=== PATIENT | female | born 1965 | race Caucasian/White ===

== ENCOUNTER → 2018-05-01 14:49 | Outpatient (CLI) | payer OTHER, SELFPAY ==
--- NOTE | 2018-05-01 14:51 | DI.RAD.S_ITS ---
PROCEDURE: XR FINGER RT MIN 2V INDICATIONS: Finger pain on right hand TECHNIQUE: AP hand, 2 views of the fifth finger(s) acquired. COMPARISON: None. FINDINGS: Bones: No fractures or dislocations. No suspicious bony lesions. There is joint space narrowing and small osteophyte at the fifth distal interphalangeal joint. Soft tissues: No suspicious soft tissue calcifications. IMPRESSION: No fracture or dislocation. Mild degenerative changes at the fifth distal interphalangeal joint. Dictated by: Elvia Grady M.D. on 05/01/2018 at 17:08 Approved by: Elvia Grady M.D. on 05/02/2018 at 11:24
== END ==
PROVIDERS: PCP Family Medicine; Visit Provider Internal Medicine
DX: M79.644 Pain in right finger(s) (principal)
CPT/HCPCS: 73140

== ENCOUNTER → 2018-09-17 15:03 | Outpatient (CLI) | payer OTHER, SELFPAY | PROVIDERS: Family Provider Family Medicine; PCP Family Medicine; Visit Provider Physician Assistant | DX: J02.9 Acute pharyngitis, unspecified (principal) | CPT/HCPCS: 87070 ==

== ENCOUNTER → 2018-10-13 14:08 | Outpatient (CLI) | payer OTHER, SELFPAY ==
--- NOTE | 2018-10-13 | DI.MRI.S_ITS ---
PROCEDURE: MR BRAIN (IAC) WWO CON INDICATIONS: Hyperacusis, right ear TECHNIQUE: Noncontrast sagittal T1 spin echo, axial FLAIR, axial gradient echo, axial diffusion and ADC through the brain. Axial thin-slice 3D CISS, coronal TruFISP, axial T1 spin echo with fat saturation through the internal auditory canals. After the administration of contrast, thin slice axial and coronal T1 spin echo with fat saturation through the internal auditory canals, and axial T1 spin echo with fat saturation through the brain. COMPARISON: None. FINDINGS: Image quality: Excellent. Cerebellopontine angles: No cerebellopontine angle masses. Inner ear structures appear normally formed. No suspicious enhancement in the internal auditory canal or along the course of the 7th cranial nerve. CSF spaces: Ventricles are normal in size and shape. No extra-axial fluid collections. Basal cisterns are patent. Brain: No intracranial bleeds or mass effects. Krishnan-white matter interface is intact. No abnormal intracranial enhancement. Diffusion weighted images demonstrate no acute ischemic insults. Brainstem appears normal. Normal intravascular flow voids are present. Skull and face: Calvarial marrow signal is normal. Orbits appear normal. Sinuses: Sinuses and mastoids are clear. IMPRESSION: 1. No evidence of vestibular schwannoma. 2. No intracranial disease process. 3. No abnormal intracranial mass or suspicious postcontrast enhancement. 4. No abnormal intracranial signal. Dictated by: Becki Ledesma MD, PhD on 10/13/2018 at 17:01 Approved by: Becki Ledesma MD, PhD on 10/13/2018 at 17:04
== END ==
PROVIDERS: PCP Family Medicine; Visit Provider Otolaryngology
DX: H93.231 Hyperacusis, right ear (principal)
CPT/HCPCS: 70553; A9579

== ENCOUNTER → 2019-08-06 13:19 | Outpatient (CLI) | payer OTHER, SELFPAY ==
[2019-08-06 13:55] LABS: Influenza A - CEPHEID Flu A POSITIVE (NEGATIVE); Influenza B - CEPHEID Flu B NEGATIVE (NEGATIVE)
== END ==
PROVIDERS: PCP Registered Nurse; Visit Provider Physician Assistant
DX: R05 Cough (principal)
CPT/HCPCS: 87502

== ENCOUNTER → 2019-09-29 10:54 | Outpatient (CLI) | payer OTHER, SELFPAY ==
[2019-09-29 12:07] LABS: Hematocrit 41.7 % (36-46); Hemoglobin 14.3 g/dL (12.0-16.0); Mean Corpuscular HGB Conc 34.3 % (30-36); Mean Corpuscular Hemoglobin 30.4 PG (26-34); Mean Corpuscular Volume 88.5 fL (80-100); Platelet Count 265 X10^3/uL (150-400); Red Blood Cell Count 4.71 X10^6/uL (4.0-5.2); Red Cell Distribution Width 13.2 % (11.6-14.8); White Blood Cell Count 5.4 X10^3/uL (4.5-11.0)
[2019-09-29 12:47] LABS: Alanine Aminotransferase 22 IU/L (<35); Albumin 4.4 g/dL (3.5-5.0); Albumin Globulin Ratio 1.4 (1.0-2.8); Alkaline Phosphatase 57 U/L (38-126); Aspartate Aminotransferase 28 IU/L (14-36); BUN Creatinine Ratio 18.3 (6-22); Bilirubin Total 0.8 mg/dL (0.2-1.3); Blood Urea Nitrogen 11 mg/dL (7-17); Calcium 9.4 mg/dL (8.4-10.2); Carbon Dioxide 24 mmol/L (22-32); Chloride 106 mmol/L (98-107); Estimated Glomerular Filt Rate > 60.0 mL/min (>60); Globulin 3.2 g/dL (1.7-4.1); Glucose 105 mg/dL (70-100); HEMOLYSIS < 15 (0-50); Sodium 139 mmol/L (137-145); Total Protein 7.6 g/dL (6.3-8.2)
[2019-09-29 13:17] LABS: TSH w/ Reflex to FT4 2.52 uIU/mL (0.47-4.68)
[2019-09-29 15:12] LABS: Creatinine Urine Random 89.7 mg/dL
[2019-09-29 15:18] LABS: Microalbumi Creatinin Ratio Ur 30.1 ug/mg CR (<30); Microalbumin Urine Random 2.7 mg/dL (0-1.6)
[2019-09-29 19:18] LABS: Hemoglobin A1C% w Est Avg Glu 4.9 % (4.0-6.0)
== END ==
PROVIDERS: PCP Nurse Practitioner Family; Referring Provider Nurse Practitioner Family; Visit Provider Nurse Practitioner Family
DX: I10 Essential (primary) hypertension (principal); R07.9 Chest pain, unspecified; R73.01 Impaired fasting glucose
CPT/HCPCS: 36415; 80053; 82043; 82570; 83036; 84443; 85027

== ENCOUNTER → 2020-03-14 17:03 | Outpatient (CLI) | payer OTHER, SELFPAY | PROVIDERS: PCP Nurse Practitioner Family; Visit Provider Registered Nurse Diabetes Educator | DX: R30.0 Dysuria (principal) | CPT/HCPCS: 87077; 87086; 87186 ==

== ENCOUNTER → 2020-05-27 10:21 | Outpatient (CLI) | payer OTHER, SELFPAY ==
[2020-05-27 11:48] LABS: Creatinine Urine Random 73.2 mg/dL
[2020-05-27 12:01] LABS: Microalbumin Urine Random < 0.6 mg/dL (0-1.6)
[2020-05-27 12:53] LABS: BUN Creatinine Ratio 17.7 (6-22); Blood Urea Nitrogen 11 mg/dL (7-17); Calcium 9.2 mg/dL (8.4-10.2); Carbon Dioxide 30 mmol/L (22-32); Chloride 105 mmol/L (98-107); Estimated Glomerular Filt Rate > 60.0 mL/min (>60); Glucose 95 mg/dL (70-100); HEMOLYSIS < 15 (0-50); Potassium 4.2 mmol/L (3.4-5.1); Sodium 138 mmol/L (137-145)
== END ==
PROVIDERS: PCP Nurse Practitioner Family; Referring Provider Nurse Practitioner Family; Visit Provider Nurse Practitioner Family
DX: I10 Essential (primary) hypertension (principal)
CPT/HCPCS: 36415; 80048; 82043; 82570

== ENCOUNTER → 2020-06-13 15:13 | Outpatient (CLI) | payer OTHER, SELFPAY ==
[2020-06-13 16:55] LABS: COVID19 -Nasal RAPID Negative (Negative)
== END ==
PROVIDERS: PCP Nurse Practitioner Family; Visit Provider Physician Assistant
DX: Z11.59 Encounter for screening for other viral diseases (principal)
CPT/HCPCS: 87635

== ENCOUNTER → 2020-10-06 12:19 | Outpatient (CLI) | payer OTHER, SELFPAY ==
--- NOTE | 2020-10-06 12:21 | DI.RAD.S_ITS ---
PROCEDURE: XR SACRUM COCCYX MIN 2V INDICATIONS: low back pain after cycle class, chronic pain TECHNIQUE: 3 views of the sacrum and coccyx acquired. COMPARISON: None. FINDINGS: Bones: No fractures or dislocations. No suspicious bony lesions. Soft tissues: Visualized bowel gas pattern is normal. No suspicious soft tissue densities. IMPRESSION: Centrally positioned IUD, normal appearance of the sacrum and coccyx. Dictated by: Elroy Machuca M.D. on 10/06/2020 at 13:48 Approved by: Elroy Macuhca M.D. on 10/06/2020 at 13:48
--- NOTE | 2020-10-06 12:21 | DI.RAD.S_ITS ---
PROCEDURE: XR LUMBAR SPINE 2-3V INDICATIONS: low back pain after cycle class, chronic pain TECHNIQUE: 2 views of the lumbar spine were acquired. COMPARISON: None. FINDINGS: Bones: 5 [id number] vertebrae are present. There is normal bony alignment. No vertebral body compression fractures. No suspicious bony lesions. Note is made of moderate joint space narrowing at L5-S1, and moderately severe facet osteoarthritis at this level symmetric bilaterally. Soft tissues: Overlying bowel gas pattern is normal. No suspicious soft tissue calcifications. IMPRESSION: No subluxation is seen. Isolated finding of moderately severe degenerative disc disease and facet osteoarthritis along the low L5-S1 level of the lumbosacral spine. Dictated by: Elroy Machuca M.D. on 10/06/2020 at 13:48 Approved by: Elroy Machuca M.D. on 10/06/2020 at 13:50
== END ==
PROVIDERS: PCP Nurse Practitioner Family; Referring Provider Nurse Practitioner Family; Visit Provider Nurse Practitioner Family
DX: M54.5 Low back pain (principal); M51.37 Other intervertebral disc degeneration, lumbosacral region; M47.817 Spondylosis without myelopathy or radiculopathy, lumbosacral region; G89.29 Other chronic pain; Z97.5 Presence of (intrauterine) contraceptive device
CPT/HCPCS: 72100; 72220

== ENCOUNTER → 2020-12-13 10:17 | Outpatient (CLI) | payer OTHER, SELFPAY ==
[2020-12-13 11:07] LABS: Hematocrit 41.5 % (36-46); Mean Corpuscular HGB Conc 33.7 % (30-36); Mean Corpuscular Hemoglobin 30.4 PG (26-34); Mean Corpuscular Volume 90.2 fL (80-100); Platelet Count 270 X10^3/uL (150-400); White Blood Cell Count 6.1 X10^3/uL (4.5-11.0)
[2020-12-13 11:55] LABS: Alanine Aminotransferase 23 IU/L (<35); Albumin Globulin Ratio 1.3 (1.0-2.8); Alkaline Phosphatase 58 U/L (38-126); Aspartate Aminotransferase 26 IU/L (14-36); BUN Creatinine Ratio 21.2 (6-22); Bilirubin Total 0.7 mg/dL (0.2-1.3); Blood Urea Nitrogen 14 mg/dL (7-17); Calcium 9.2 mg/dL (8.4-10.2); Carbon Dioxide 28 mmol/L (22-32); Chloride 104 mmol/L (98-107); Cholesterol 160 mg/dL (140-199); Estimated Glomerular Filt Rate > 60.0 mL/min (>60); Glucose 94 mg/dL (70-100); HDL Cholesterol 51 mg/dL (40-60); HEMOLYSIS < 15 (0-50); LDL Cholesterol Calculated 79 mg/dL (<100); Potassium 4.2 mmol/L (3.4-5.1); Sodium 137 mmol/L (137-145); Triglycerides 148 mg/dL (35-150)
== END ==
PROVIDERS: PCP Nurse Practitioner Family; Referring Provider Nurse Practitioner Family; Visit Provider Nurse Practitioner Family
DX: I10 Essential (primary) hypertension (principal); Z00.00 Encounter for general adult medical examination without abnormal findings; Z13.6 Encounter for screening for cardiovascular disorders
CPT/HCPCS: 36415; 80053; 80061; 85027

== ENCOUNTER → 2021-01-01 11:40 | Outpatient (CLI) | payer OTHER, SELFPAY ==
--- NOTE | 2021-01-01 11:41 | DI.MRI.S_ITS ---
PROCEDURE: MR LUMBAR SPINE WO CON INDICATIONS: pain, please include coccyx TECHNIQUE: Noncontrast sagittal T1 spin echo and T2 fast echo, sagittal STIR, axial T1 and T2 fast spin echo through the lumbar spine. In cases with scoliosis, additional coronal T2 fast spin echo may be performed. COMPARISON: [facility], CR, XR LUMBAR SPINE 2-3V, 10/06/2020, 12:27. FINDINGS: Image quality: Excellent. Alignment and Curvature: 5 lumbar type vertebral bodies are present by plain film. There is loss of normal lumbar lordosis. There is mild grade 1 retrolisthesis of L5 on S1. Bone Marrow: Marrow is of normal overall signal. No acute vertebral body compression fractures. Minimal reactive signal within the endplates adjacent to the L5-S1 intervertebral disc. Spinal Cord: Conus medullaris terminates at the lower L1 level. Visualized cord demonstrates normal signal and size. Paraspinous Soft Tissues: No paravertebral masses. T12-L1: Normal appearance. L1-L2: Normal appearance. L2-L3: Normal appearance. L3-L4: Normal appearance. L4-L5: Normal appearance. L5-S1: Moderate disc height loss and desiccation. Mild diffuse disc bulge with superimposed broad-based left posterolateral protrusion. Mild bilateral facet hypertrophy. Mild canal stenosis. Moderate left and mild right subarticular foraminal stenosis. IMPRESSION: 1. Disc and facet disease at L5-S1, causing mild canal stenosis, as well as left greater than right foraminal stenosis. Dictated by: Micheal Patton M.D. on 01/03/2021 at 9:58 Approved by: Micheal Patton M.D. on 01/03/2021 at 10:10
== END ==
PROVIDERS: PCP Nurse Practitioner Family; Referring Provider Nurse Practitioner Family; Visit Provider Nurse Practitioner Family
DX: M54.5 Low back pain (principal); G89.29 Other chronic pain
CPT/HCPCS: 72148

== ENCOUNTER 2021-04-11 06:11 | Emergency (ER) | payer OTHER, SELFPAY ==
[2021-04-11 06:23] VITALS: BP 195/129; PULSE 87; RESP 14; TEMP 36.6; O2SAT 95; BMI 36.8
--- NOTE | 2021-04-11 06:26 | DI.RAD.S_ITS ---
PROCEDURE: XR CHEST 1V INDICATIONS: + covid home test, chest pain TECHNIQUE: One view of the chest was acquired. COMPARISON: None. FINDINGS: Surgical changes and devices: None. Lungs and pleura: Lungs are clear. No pleural effusions or pneumothorax. Mediastinum: Mediastinal contours appear normal. Heart size is normal. Bones and chest wall: No suspicious bony lesions. Overlying soft tissues appear unremarkable. IMPRESSION: No acute cardiopulmonary disease process. Dictated by: Becki Ledesma MD, PhD on 04/11/2021 at 8:30 Approved by: Becki Ledesma MD, PhD on 04/11/2021 at 8:30
--- NOTE | 2021-04-11 06:27 | ED_ITS ---
HPI - Chest Pain <Radha Min, DO - Last Filed: 04/12/21 04:41> General Chief Complaint: Shortness of Breath/Dyspnea Stated Complaint: HOME TEST COVID+ CHEST PAIN Time Seen by Provider: 04/11/21 06:11 Source: patient Mode of arrival: Ambulatory Limitations: no limitations History of Present Illness HPI narrative: This is a 55-year-old female with known history of hypertension who has [employer] vaccine x2 last received in November. Patient states she has had some mild cough, nasal congestion that started on Saturday, 2 days ago. Patient did a home test for COVID last night had tested positive. She states overnight she has developed some chest discomfort wounds well as a little bit of shortness of breath. She has not had any fevers. She has had nonproductive cough. She denies any nausea or vomiting. No diaphoresis good some mild diarrhea. No urinary symptoms. No swelling in her extremities. Patient states that she did have a known positive COVID exposure her on the 27 of March. She has had recent travel. Patient uses tobacco socially coma who show local, denies illicit. Related Data Home Medications Medication Instructions Recorded Confirmed levonorgestrel 20 mcg/24 hours (6 INTRAUTERINE each 01/16/18 12/20/20 yrs) 52 mg intrauterine device (Mirena) Previous Rx's Medication Instructions Recorded epinephrine 0.3 mg/0.3 mL 0.3 mg IM PRN PRN #1 pkg 01/16/18 injection, auto-injector (EpiPen 2-Peter) azelastine 137 mcg (0.1 %) nasal 1 spray NASAL BID PRN #30 ml 02/22/20 spray aerosol fluticasone propionate 50 1 spray NASAL BID PRN 30 Days 02/22/20 mcg/actuation nasal #15.8 ml spray,suspension miscellaneous medical supply 1 each MISC DAILY #1 each 06/03/20 (Blood Pressure Cuff) metaxalone 800 mg tablet 800 mg PO TID PRN #60 tab 12/20/20 losartan 50 mg tablet (Cozaar) 50 mg PO BID #180 tab 03/27/21 benzonatate 100 mg capsule 100 mg PO TID PRN #14 cap 04/11/21 (Kimberil Morales) Allergies Allergy/AdvReac Type Severity Reaction Status Date / Time bee venom protein (honey bee) Allergy Severe Anaphylaxis Verified 12/20/20 13:33 Review of Systems <Radha Min DO - Last Filed: 04/12/21 04:41> Review of Systems ROS Unobtainable: All systems reviewed & are unremarkable except as noted in HPI and below Patient History <Radha Min DO - Last Filed: 04/12/21 04:41> Medical History Acute exacerbation of chronic low back pain Allergies Ankle pain Anxiety Bacterial sinusitis Chicken pox (1976) Chronic back pain Coccyx disorder (2005) Eczema Fractures History of urinary incontinence Hypertension (2013) Intermittent chest pain (07/2019) Irregular menstrual cycle Menorrhagia Recurrent sinusitis Seasonal allergies Shoulder pain Tinnitus (~07/2018) Surgical History Anesthesia History of tonsillectomy (1985) Hx of knee surgery (1990) Stress incontinence (~08/26/19) Family History Father Cancer Brain tumor Grandfather Heart disease Mother Age: 82 Hypertension Brother No problems noted. Brother No problems noted. Brother No problems noted. Brother No problems noted. Grandmother Brain aneurysm Grandfather No problems noted. Grandmother No problems noted. Sister No problems noted. Social History Smoking Status: Unknown if ever smoked (social smoker, 1/2 pack per month) alcohol intake: current (Occasionally) substance use type: does not use Smoking Status: Unknown if ever smoked (social smoker, 1/2 pack per month) Exam <Radha Min DO - Last Filed: 04/12/21 04:41> Narrative Exam Narrative: GENERAL: Alert and oriented x three, female in mild distress. Patient ambulated in the department into the room without issue. HEENT: Head normocephalic, atraumatic, EOMI, pupils reactive, face symmetric, moist mucous membranes NECK: Supple, full range of motion CARDIOVASCULAR: Regular rate and rhythm without murmurs, rubs or gallops. RESPIRATORY: Breath sounds equal bilaterally, no wheezes rales or rhonchi. No tachypnea. No accessory muscle use. Patient has dry regular cough in the room. ABDOMEN: Soft, nontender. Normoactive bowel sounds all 4 quadrants. No guarding or rebound, rigidity, no mass : No CVA tenderness EXTREMITIES: Normal range of motion, no clubbing or edema. Neurovascularly intact NEUROLOGICAL: Cranial nerves II through XII grossly intact. Moving all extremities SKIN: Warm, dry, no petechiae, no rashes or lesions. Initial Vital Signs Initial Vital Signs: Vital Signs Temperature 97.8 F 04/11/21 06:23 Pulse Rate 87 04/11/21 06:23 Respiratory Rate 14 04/11/21 06:23 Blood Pressure 195/129 H 04/11/21 06:23 Pulse Oximetry 95 04/11/21 06:23 <Gege Clements MD - Last Filed: 04/12/21 07:07> Initial Vital Signs Initial Vital Signs: Vital Signs Temperature 97.8 F 04/11/21 06:23 Pulse Rate 87 04/11/21 06:23 Respiratory Rate 14 04/11/21 06:23 Blood Pressure 195/129 H 04/11/21 06:23 Pulse Oximetry 95 04/11/21 06:23 Course <Radha Min DO - Last Filed: 04/12/21 04:41> Orders Ordered: ED Orders 04/11/21 06:26 XR chest 1V Stat 04/11/21 06:30 COVID19 -Nasal swab/Pre-Proc Stat Vital Signs Vital signs: Vital Signs - 8 hr 04/11/21 06:23 Temperature 97.8 F Pulse Rate 87 Respiratory Rate 14 Blood Pressure 195/129 H Pulse Oximetry 95 <Gege Clements MD - Last Filed: 04/12/21 07:07> Orders Ordered: ED Orders 04/11/21 06:26 XR chest 1V Stat 04/11/21 06:30 COVID19 -Nasal swab/Pre-Proc Stat Vital Signs Vital signs: Vital Signs - 8 hr 04/11/21 06:23 Temperature 97.8 F Pulse Rate 87 Respiratory Rate 14 Blood Pressure 195/129 H Pulse Oximetry 95 MDM - Chest Pain <Radha Min DO - Last Filed: 04/12/21 04:41> Lab Data Labs: Lab Results 09/07/21 Range/Units 06:30 SARS-CoV-2 (PCR) Positive H (Negative) Imaging Data Chest x-ray: Radiologist's Impression: No acute process. ECG Data Attestation: I personally reviewed and interpreted this ECG as follows: Prior ECG tracings: not available for review Interpretation: Sinus rhythm rate of 80, P are 146 QRS 88 QTC of 470. Inverted T-wave V1 no acute changes appreciated otherwise. MDM Narrative Medical decision making narrative: This is a 55-year-old female with 2 days of symptoms with positive home COVID test. EKG not appear to show any acute changes. Chest x-ray is negative. Patient's heart rate and oxygenation are reassuring. <Gege Clements MD - Last Filed: 04/12/21 07:07> Lab Data Labs: Lab Results 04/11/21 Range/Units 06:30 SARS-CoV-2 (PCR) Positive H (Negative) Discharge Plan Departure Patient Disposition: Home Clinical Impression: COVID-19 virus infection Instructions: DI for COVID-19 (Suspected or Confirmed ) Activity Restrictions/Additional Instructions: *You have been diagnosed with COVID infection. Your chest x-ray today does not show any acute changes or signs of infection. You may take Tylenol up to a 1000 mg every 8 hours as needed for chest pain. You may take on cough medication as prescribed. You may take one Perle every 8 hours as needed for cough. Prescription sent to [facility] in [place]. If you wish you may obtain a pulse oximeter for use at home to monitor. Please return to the ER if your pulse oximeter shows an O2 saturation less than 92%. *What to do: * per recommendations from the CDC and the [facility] Department of Health * stay home except to get medical care. Restrict activities outside your home, except for getting medical care. Do not go to work, school, or public areas. Avoid using public transportation, ride sharing, or taxis. * separate yourself from other people in your home. * call ahead before visiting your doctor * Wear a face mask * Cover your coughs and sneezes * Clean your hands often * Avoid sharing household items * Clean all high-touch services every day * Monitor your symptoms and seek prompt medical attention if your illness is worsening, particularly with difficulty in breathing. Discussed continuing home isolation * for individuals with symptoms who are confirmed or suspected cases of COVID-19 and are directed to care for themselves at home, discontinue home isolation under the following conditions: 1. At least 72 hours have passed since recovery, defined as resolution of fever without the use of fever reducing medications, and improvement in respiratory symptoms (cough, shortness of breath) AND, 2. At least 7 days have passed since symptoms 1st appeared Individuals with laboratory confirmed COVID-19 who have not had any symptoms may discontinue home isolation when at least 7 days have passed since the date of their 1st COVID-19 diagnostic test and have had no subsequent illness Prescriptions: New benzonatate [Tessalon Perles] 100 mg capsule 100 mg PO TID PRN (Reason: cough) Qty: 14 RF: 0 No Action losartan [Cozaar] 50 mg tablet 50 mg PO BID Qty: 180 RF: 1 epinephrine [EpiPen 2-Peter] 0.3 mg/0.3 mL auto-injector 0.3 mg IM PRN PRN (Reason: anaphylaxis) Qty: 1 RF: 5 levonorgestrel [Mirena] 20 mcg/24 hr (5 years) intrauterine device Intrauterine RF: 0 azelastine 137 mcg (0.1 %) aerosol,spray 1 spray NASAL BID PRN (Reason: chronic sinusitis) Qty: 30 RF: 3 fluticasone propionate 50 mcg/actuation spray,suspension 1 spray NASAL BID PRN (Reason: allergy symptoms) 30 Days Qty: 15.8 RF: 3 Blood Pressure Cuff Misc 1 each MISC DAILY Qty: 1 RF: 0 metaxalone 800 mg tablet 800 mg PO TID PRN (Reason: muscle pain) Qty: 60 RF: 0 Referrals: M[facility] ARNP [Primary Care Provider] - <Gege Clements MD - Last Filed: 04/12/21 07:07> [facility]: I was immediately available in the dep artment for consultation throughout this patient's visit. I agree with documentation as above. Gege Clements MD
[2021-04-11 06:49] LABS: COVID19 -Nasal RAPID POSITIVE (Negative)
[2021-04-11 07:18] VITALS: BP 175/105; PULSE 70; RESP 18; O2SAT 98
== END 2021-04-11 07:15 | disposition home or self-care (01) ==
PROVIDERS: Emergency Provider Emergency Medicine; PCP Nurse Practitioner Family
DX: U07.1 COVID-19 (principal); R07.9 Chest pain, unspecified
CPT/HCPCS: 71045; 87635; 93005; 99283; 99284; C9803

== ENCOUNTER 2021-07-14 15:46 | Emergency (ER) | payer OTHER, SELFPAY ==
[2021-07-14] VITALS (15 sets, daily range): BP systolic 146–177; BP diastolic 77–112; PULSE 60–84; RESP 17–23; TEMP 36.4; O2SAT 93–100; BMI 37.8
--- NOTE | 2021-07-14 16:08 | DI.CT.S_ITS ---
PROCEDURE: CT HEAD/BRAIN WO CON INDICATIONS: Headache. Right eye pressure. TECHNIQUE: Noncontrast 4.5 mm thick angled axial sections acquired from the foramen magnum to the vertex, with coronal and sagittal reformats. For radiation dose reduction, the following was used: automated exposure control, adjustment of mA and/or kV according to patient size. COMPARISON: MR, MR BRAIN (IAC) WWO CON, 10/13/2018, 14:23. FINDINGS: Image quality: Excellent. CSF spaces: Basal cisterns are patent. No extra-axial fluid collections. Ventricles are normal in size and shape. Brain: No midline shift. No intracranial masses or hemorrhage. Krishnan-white matter interface is normal. Skull and face: Calvarium and visualized facial bones are intact, without suspicious lesions. Sinuses: Visualized sinuses and mastoids are clear. IMPRESSION: 1. No acute intracranial process. Dictated by: Suyapa Boudreaux M.D. on 07/14/2021 at 16:34 Approved by: Suyapa Boudreaux M.D. on 07/14/2021 at 16:35
--- NOTE | 2021-07-14 16:08 | ED_ITS ---
HPI - Neuro Symptoms/Deficit General Chief Complaint: Altered Mental Status Stated Complaint: high blood pressure, visual changes Time Seen by Provider: 07/14/21 16:08 History of Present Illness HPI Narrative: The patient developed right eye discomfort just prior to arrival. She had a h eadache. Her vision was slightly fuzzy. There were no visual field cuts. There was no scotoma. There is no blindness. She has a history of hypertension, she takes losartan 50 mg b.i.d.. She is compliant with medications. With the symptoms she took her blood pressure, she has 170s. She had no chest pain or dyspnea. She was having a palpitations. She denies confusion. On the way here she felt pressure in her right. She had no change in speech, no confusion, and no focal numbness or weakness. She has no history of diabetes, hyperlipidemia, and she has no history of tobacco abuse. She denies recent illness. She has had no sore throat, fever, cough or dyspnea. She has no fever. She has no history of CAD, or CVA/TIA. She has no difficulty with urine output. Related Data Home Medications Medication Instructions Recorded Confirmed levonorgestrel 20 mcg/24 hours (7 INTRAUTERINE each 01/16/18 05/09/21 yrs) 52 mg intrauterine device (Mirena) Previous Rx's Medication Instructions Recorded epinephrine 0.3 mg/0.3 mL 0.3 mg (0.3 mL) IM PRN PRN #1 pkg 01/16/18 injection, auto-injector (EpiPen 2-Peter) azelastine 137 mcg (0.1 %) nasal 1 spray NASAL BID PRN #30 ml 02/22/20 spray aerosol fluticasone propionate 50 1 spray NASAL BID PRN 30 Days 02/22/20 mcg/actuation nasal #15.8 ml spray,suspension miscellaneous medical supply 1 each MISC DAILY #1 each 06/03/20 (Blood Pressure Cuff) metaxalone 800 mg tablet 800 mg PO TID PRN #60 tab 12/20/20 losartan 50 mg tablet (Cozaar) 50 mg PO BID #180 tab 03/27/21 benzonatate 100 mg capsule 100 mg PO TID PRN #14 cap 04/11/21 (Kimberli Morales) amlodipine 2.5 mg tablet 2.5 mg PO DAILY #60 tab 04/14/21 hydrochlorothiazide 25 mg tablet 25 mg PO DAILY #30 tab 07/14/21 Allergies Allergy/AdvReac Type Severity Reaction Status Date / Time bee venom protein (honey bee) Allergy Severe Anaphylaxis Verified 05/09/21 11:59 Review of Systems Review of Systems Narrative: As per HPI. Patient History Medical History Acute exacerbation of chronic low back pain Allergies Ankle pain Anxiety Bacterial sinusitis Chicken pox (1976) Chronic back pain Coccyx disorder (2005) Eczema Fractures History of urinary incontinence Hypertension (2013) Intermittent chest pain (07/2019) Irregular menstrual cycle Menorrhagia Recurrent sinusitis Seasonal allergies Shoulder pain Tinnitus (~07/2018) Surgical History Anesthesia History of tonsillectomy (1985) Hx of knee surgery (1990) Stress incontinence (~08/26/19) Family History Father Cancer Brain tumor Grandfather Heart disease Mother Age: 82 Hypertension Brother No problems noted. Brother No problems noted. Brother No problems noted. Brother No problems noted. Grandmother Brain aneurysm Grandfather No problems noted. Grandmother No problems noted. Sister No problems noted. Social History Smoking Status: Former smoker (social smoker, 1/2 pack per month) alcohol intake: current (Occasionally) substance use type: does not use Smoking Status: Former smoker (social smoker, 1/2 pack per month) tobacco type: cigarettes alcohol intake frequency: 0-2 drinks per day Substance Use Type: does not use Exam Initial Vital Signs Initial Vital Signs: Vital Signs Temperature 97.5 F L 07/14/21 15:48 Pulse Rate 76 07/14/21 15:48 Respiratory Rate 18 07/14/21 15:48 Blood Pressure 177/104 H 07/14/21 15:48 Pulse Oximetry 98 07/14/21 15:48 Const General: cooperative, healthy appearing and anxious [facility] Head: normocephalic and atraumatic Ears: hearing grossly normal bilaterally Face and sinus: normal facial exam Mouth: oral mucosae normal Eyes General: appearance normal, both eyes and all related structures Conjunctivae: conjunctivae normal Pupils: PERRL EOM: EOM intact bilaterally Neck Neck: normal visual inspection and No JVD Lymphatic: No lymphedema Chest Chest: normal inspection of the chest Resp Auscultation: clear to auscultation bilaterally Cardio Rate: regular rate Rhythm: regular rhythm Heart Sounds: S1 normal, S2 normal and no murmurs GI Inspection: normal to inspection Palpation: soft, No mass and No tender Auscultation: normal bowel sounds Back/Spine/Pelvis Back: normal to inspection Skin General: no rashes or lesions noted Neuro General: patient alert, patient awake, patient oriented x3 and no focal motor deficits Other: NIHSS is 0. Extrem General: normal to inspection, full ROM, no calf tenderness and pedal edema (3+ bilateral edema) Psych Speech and Movement: speech and movement normal Mood: anxious mood Attitude: cooperative Course Orders Ordered: ED Orders 07/14/21 16:02 BNP [NT-proBNP (BNP-Adult 18+)] Stat Basic Metabolic Panel Stat Complete Blood Count AUTO DIFF Stat Prothrombin Time INR Stat Troponin & CK Cardiac Panel Stat 07/14/21 16:08 CT head/brain wo con Stat 07/14/21 16:09 EKG-12 Lead Stat 07/14/21 17:03 Urine Culture Stat Urine Drug Screen, Rapid Stat Urine Microscopic Stat Sodium Chloride (Normal Saline 0.9%) 1,000 mls @ 150 mls/hr IV CONT LEEANN Last Admin: 07/14/21 16:53 Dose: 150 mls/hr Documented by: KBRYERS Discontinued Medications Hydrochlorothiazide (Hydrochlorothiazide 25 Mg Tablet) 25 mg PO NOW ONE Stop: 07/14/21 18:19 Last Admin: 07/14/21 18:26 Dose: 25 mg Documented by: Vital Signs Vital signs: Vital Signs - 8 hr 07/14/21 15:48 07/14/21 15:53 07/14/21 15:57 Temperature 97.5 F L Pulse Rate 76 74 69 Respiratory Rate 18 Blood Pressure 177/104 H 177/104 H Pulse Oximetry 98 100 100 07/14/21 16:00 07/14/21 16:29 07/14/21 16:30 Temperature Pulse Rate 70 65 Respiratory Rate Blood Pressure 170/104 H Pulse Oximetry 93 99 07/14/21 16:31 07/14/21 16:40 07/14/21 17:00 Temperature Pulse Rate 69 68 84 Respiratory Rate Blood Pressure 165/112 H 165/112 H Pulse Oximetry 99 99 94 07/14/21 17:25 Temperature Pulse Rate 60 Respiratory Rate 18 Blood Pressure 165/84 H Pulse Oximetry 98 MDM - Neuro Symptoms/Deficit Lab Data Result diagrams: 07/14/21 16:02 07/14/21 16:02 Labs: Lab Results 07/14/21 07/14/21 07/14/21 Range/Units 16:02 16:02 16:02 WBC 6.7 (4.5-11.0) X10^3/uL RBC 4.59 (4.0-5.2) X10^6/uL Hgb 14.4 (12.0-16.0) g/dL Hct 41.3 (36-46) % MCV 89.9 (80-100) fL MCH 31.4 (26-34) PG MCHC 34.9 (30-36) % RDW 13.1 (11.6-14.8) % Plt Count 267 (150-400) X10^3/uL Neut % (Auto) 42.3 L (50-75) % Lymph % (Auto) 47.3 H (25-40) % Dickens % (Auto) 6.9 (3-14) % Eos % (Auto) 2.7 (2-4) % Baso % (Auto) 0.8 (0-2) % Neut # (Auto) 2900 (1704-1861) /uL Lymph # (Auto) 3200 (1059-0502) /uL Dickens # (Auto) 500 (0-900) /uL Eos # (Auto) 200 (0-450) /uL Baso # (Auto) 100 (0-100) /uL PT 11.7 (10.1-12.7) SECONDS INR 1.1 (0.9-1.3) Sodium (137-145) mmol/L Potassium (3.4-5.1) mmol/L Chloride (98-107) mmol/L Carbon Dioxide (22-32) mmol/L BUN (7-17) mg/dL Creatinine (0.52-1.04) mg/dL Estimated GFR (>60) mL/min BUN/Creatinine Ratio (6-22) Glucose (70-100) mg/dL Calcium (8.4-10.2) mg/dL Total Creatine Kinase 58 (30-135) U/L CK-MB (CK-2) TNP CK-MB (CK-2) Rel Index TNP Troponin I < 0.012 (0.01-0.034) ng/mL NT-Pro-B Natriuret Pep 88 (<125) pg/mL Urine RBC (0-5/HPF) Urine WBC (0-5/HPF) Ur Squamous Epith Cells (0-5/HPF) Urine Bacteria (None) Ur Culture Indicated? U Opiates 300ng/mL cut (Negative) Ur Oxycodone Screen (Negative) Urine Methadone Screen (Negative) Ur Barbiturates Screen (Negative) U Tricyclic Antidepress (Negative) Ur Phencyclidine Scrn (Negative) Ur Amphetamines Screen (Negative) U Methamphetamines Scrn (Negative) Ur MDMA Scrn (Ecstasy) (Negative) U Benzodiazepines Scrn (Negative) Urine Cocaine Screen (Negative) U Marijuana (THC) Screen (Negative) 07/14/21 07/14/21 07/14/21 Range/Units 16:02 17:03 17:03 WBC (4.5-11.0) X10^3/uL RBC (4.0-5.2) X10^6/uL Hgb (12.0-16.0) g/dL Hct (36-46) % MCV (80-100) fL MCH (26-34) PG MCHC (30-36) % RDW (11.6-14.8) % Plt Count (150-400) X10^3/uL Neut % (Auto) (50-75) % Lymph % (Auto) (25-40) % Dickens % (Auto) (3-14) % Eos % (Auto) (2-4) % Baso % (Auto) (0-2) % Neut # (Auto) (3602-7080) /uL Lymph # (Auto) (1222-5476) /uL Dickens # (Auto) (0-900) /uL Eos # (Auto) (0-450) /uL Baso # (Auto) (0-100) /uL PT (10.1-12.7) SECONDS INR (0.9-1.3) Sodium 137 (137-145) mmol/L Potassium 4.0 (3.4-5.1) mmol/L Chloride 105 (98-107) mmol/L Carbon Dioxide 29 (22-32) mmol/L BUN 15 (7-17) mg/dL Creatinine 0.69 (0.52-1.04) mg/dL Estimated GFR > 60.0 (>60) mL/min BUN/Creatinine Ratio 21.7 (6-22) Glucose 91 (70-100) mg/dL Calcium 9.4 (8.4-10.2) mg/dL Total Creatine Kinase (30-135) U/L CK-MB (CK-2) CK-MB (CK-2) Rel Index Troponin I (0.01-0.034) ng/mL NT-Pro-B Natriuret Pep (<125) pg/mL Urine RBC 1-5/hpf (0-5/HPF) Urine WBC 1-5/hpf (0-5/HPF) Ur Squamous Epith Cells 1-5 /hpf (0-5/HPF) Urine Bacteria Occasional (0-1) (None) Ur Culture Indicated? Cult not indicated U Opiates 300ng/mL cut Negative (Negative) Ur Oxycodone Screen Negative (Negative) Urine Methadone Screen Negative (Negative) Ur Barbiturates Screen Negative (Negative) U Tricyclic Antidepress Negative (Negative) Ur Phencyclidine Scrn Negative (Negative) Ur Amphetamines Screen Negative (Negative) U Methamphetamines Scrn Negative (Negative) Ur MDMA Scrn (Ecstasy) Negative (Negative) U Benzodiazepines Scrn Negative (Negative) Urine Cocaine Screen Negative (Negative) U Marijuana (THC) Screen Negative (Negative) Point of Care Testing Glucose POC 91 Urine Dip Bedside Urine Glucose Negative Bedside Urine Bilirubin - Negative Bedside Urine Ketone - Negative Urine Specific Wilton 1.015 Bedside Urine Occult Blood + Bedside Urine pH 6 Bedside Urine Protein - Negative Bedside Urine Urobilinogen - Negative Bedside Urine Nitrite - Negative Bedside Urine Leukocytes - Negative Esterase Imaging Data CT scan - head: Radiologist's Impression: No acute intracranial process. ECG Data Attestation: I personally reviewed and interpreted this ECG as follows: (Normal sinus rhythm at 62 beats per minute. Normal intervals. No ectopy. No acute ST T wave changes.) [facility] Narrative Medical decision making narrative: The patient has improved without intervention, but her blood pressure remains elevated in the 160 systolic. She is currently taking losartan b.i.d.. She has significant peripheral edema. BNP is normal. I have added hydrochlorothiazide to her treatment. Discharge Plan Departure Patient Disposition: Home Clinical Impression: Hypertension, Anxiety, Edema, peripheral Instructions: Essential Hypertension Activity Restrictions/Additional Instructions: Continue current medications. Continue your current dose of losartan. Hydrochlorothiazide 25 mg daily. The prescription was electronically forwarded to [facility] in [place], [place]. Monitor blood pressure daily. Your blood pressure may need further adjustment. This could easily be done with your losartan dose. Follow-up with your doctor next week. Return here as necessary Prescriptions: New hydrochlorothiazide 25 mg tablet 25 mg PO DAILY Qty: 30 0RF No Action losartan [Cozaar] 50 mg tablet 50 mg PO BID Qty: 180 1RF amlodipine 2.5 mg tablet 2.5 mg PO DAILY Qty: 60 0RF epinephrine [EpiPen 2-Peter] 0.3 mg/0.3 mL auto-injector 0.3 mg IM PRN PRN (Reason: anaphylaxis) Qty: 1 5RF levonorgestrel [Mirena] 20 mcg/24 hr (5 years) intrauterine device Intrauterine 0RF Label Comments: Due out 01/16/23 azelastine 137 mcg (0.1 %) aerosol,spray 1 spray NASAL BID PRN (Reason: chronic sinusitis) Qty: 30 3RF Rx Instructions: administer into each nostril fluticasone propionate 50 mcg/actuation spray,suspension 1 spray NASAL BID PRN (Reason: allergy symptoms) 30 Days Qty: 15.8 3RF Rx Instructions: administer into each nostril Blood Pressure Cuff Misc 1 each MISC DAILY Qty: 1 0RF metaxalone 800 mg tablet 800 mg PO TID PRN (Reason: muscle pain) Qty: 60 0RF Rx Instructions: may make drowsy, do not drive during therapy benzonatate [Tessalon Perles] 100 mg capsule 100 mg PO TID PRN (Reason: cough) Qty: 14 0RF Referrals: M[place] ARNP [Primary Care Provider] -
[2021-07-14 16:15] LABS: Add Manual Diff / Slide Review NO; Basophils Absolute Auto 100 /uL (0-100); Basophils Percent Auto 0.8 % (0-2); Eosinophils Absolute Auto 200 /uL (0-450); Eosinophils Percent Auto 2.7 % (2-4); Hematocrit 41.3 % (36-46); Hemoglobin 14.4 g/dL (12.0-16.0); Lymphocytes Absolute Auto 3200 /uL (1100-4500); Lymphocytes Percent Auto 47.3 % (25-40); Mean Corpuscular HGB Conc 34.9 % (30-36); Mean Corpuscular Hemoglobin 31.4 PG (26-34); Mean Corpuscular Volume 89.9 fL (80-100); Monocytes Absolute Auto 500 /uL (0-900); Monocytes Percent Auto 6.9 % (3-14); Neutrophils Absolute Auto 2900 /uL (1500-7000); Neutrophils Percent Auto 42.3 % (50-75); Platelet Count 267 X10^3/uL (150-400); Red Blood Cell Count 4.59 X10^6/uL (4.0-5.2); Red Cell Distribution Width 13.1 % (11.6-14.8); White Blood Cell Count 6.7 X10^3/uL (4.5-11.0)
[2021-07-14 16:19] LABS: INR 1.1 (0.9-1.3); Prothrombin Time 11.7 SECONDS (10.1-12.7)
[2021-07-14 16:40] LABS: Creatine Kinase 58 U/L (30-135)
[2021-07-14 16:41] LABS: BUN Creatinine Ratio 21.7 (6-22); Blood Urea Nitrogen 15 mg/dL (7-17); Calcium 9.4 mg/dL (8.4-10.2); Carbon Dioxide 29 mmol/L (22-32); Chloride 105 mmol/L (98-107); Estimated Glomerular Filt Rate > 60.0 mL/min (>60); Glucose 91 mg/dL (70-100); HEMOLYSIS 18 (0-50); Sodium 137 mmol/L (137-145)
[2021-07-14 16:53] LABS: NT-proBNP (BNP-Adult 18+) 88 pg/mL (<125); Troponin I < 0.012 ng/mL (0.01-0.034)
[2021-07-14] MEDS: SODIUM CHLORIDE 0.9% 1,000 ML 150 ML IV (16:53)
[2021-07-14 17:32] LABS: Bacteria Urine Occasional (0-1); Culture Indicated Urine Cult Not Indicated; RBC Urine 1-5/HPF (0-5/HPF); Squamous Epithelial Cell Urine 1-5 /HPF (0-5/HPF); WBC Urine 1-5/HPF (0-5/HPF)
[2021-07-14 17:46] LABS: UR Morphine/Opiate cutoff 300 Negative (Negative); Ur Creatinine Normal (Normal); Ur Specific Gravity Normal (Normal); Urine Amphetamines Negative (Negative); Urine Barbiturates Negative (Negative); Urine Benzodiazepines Negative (Negative); Urine Cocaine Negative (Negative); Urine MDMA Negative (Negative); Urine Methadone Negative (Negative); Urine Methamphetamines Negative (Negative); Urine Oxycodone Negative (Negative); Urine Phencyclidine Negative (Negative); Urine Tetrahydrocannabinol Negative (Negative); Urine Tricyclic Antidepressant Negative (Negative); Urine pH Normal (Normal)
[2021-07-14] MEDS: hydroCHLOROthiazide 25 MG TABLET PO (18:26)
== END 2021-07-14 18:55 | disposition home or self-care (01) ==
PROVIDERS: Emergency Provider Emergency Medicine; PCP Nurse Practitioner Family
DX: I10 Essential (primary) hypertension (principal); F41.9 Anxiety disorder, unspecified; R60.0 Localized edema
CPT/HCPCS: 36415; 70450; 80048; 80305; 81003; 81015; 82550; 82962; 83880; 84484; 85025; 85610; 87086; 93005; 93010; 96360; 96361; 99284; 99285

== ENCOUNTER → 2021-08-31 14:37 | Outpatient (CLI) | payer OTHER, SELFPAY ==
[2021-08-31 15:28] LABS: BUN Creatinine Ratio 22.2 (6-22); Blood Urea Nitrogen 14 mg/dL (7-17); Calcium 9.3 mg/dL (8.4-10.2); Carbon Dioxide 28 mmol/L (22-32); Chloride 102 mmol/L (98-107); Estimated Glomerular Filt Rate > 60.0 mL/min (>60); Glucose 100 mg/dL (70-100); HEMOLYSIS < 15 (0-50); Sodium 137 mmol/L (137-145)
== END ==
PROVIDERS: PCP Nurse Practitioner Family; Referring Provider Family Medicine; Visit Provider Family Medicine
DX: I10 Essential (primary) hypertension (principal)
CPT/HCPCS: 36415; 80048

== ENCOUNTER → 2021-11-24 11:19 | Outpatient (CLI) | payer OTHER, SELFPAY ==
[2021-11-24 13:08] LABS: Follicle Stimulating Hormone 20.7 mIU/mL
== END ==
PROVIDERS: PCP Family Medicine; Referring Provider Family Medicine; Visit Provider Family Medicine
DX: N93.8 Other specified abnormal uterine and vaginal bleeding (principal); N95.9 Unspecified menopausal and perimenopausal disorder
CPT/HCPCS: 36415; 83001; 83002

== ENCOUNTER → 2022-05-15 11:39 | Outpatient (CLI) | payer OTHER, SELFPAY ==
--- NOTE | 2022-05-15 11:41 | DI.RAD.S_ITS ---
PROCEDURE: XR FOOT RT MIN 3V INDICATIONS: Heel pain TECHNIQUE: 3 views of the foot were acquired. COMPARISON: None. FINDINGS: Bones: No fractures or dislocations. No suspicious bony lesions. Retrocalcaneal plantar bone spurs. Soft tissues: No tibiotalar joint effusion. Achilles tendon appears normal. IMPRESSION: Calcaneal enthesopathy. Dictated by: Graham RIVER Interpreted: Suyapa Boudreaux MD on 05/15/2022 at 12:29 Transcribed by: ALVARO on 05/15/2022 at 12:30 Approved by: Suyapa Boudreaux M.D. on 05/16/2022 at 8:13
== END ==
PROVIDERS: PCP Student in an Organized Health Care Education/Training Program; Referring Provider Student in an Organized Health Care Education/Training Program; Visit Provider Student in an Organized Health Care Education/Training Program
DX: M77.31 Calcaneal spur, right foot (principal); M79.671 Pain in right foot
CPT/HCPCS: 73630

== ENCOUNTER → 2022-06-05 12:56 | Outpatient (CLI) | payer OTHER, SELFPAY ==
--- NOTE | 2022-06-05 12:58 | DI.MG.S_ITS ---
BILATERAL DIGITAL SCREENING MAMMOGRAM 3D/2D WITH CAD: 06/05/2022 CLINICAL: Routine screening. Baseline exam. Comparison is made to exam dated: 11/15/2015 mammogram - [facility]. Both breasts are heterogeneously dense, which may obscure small masses (category c / 51-75% glandular tissue). Current study was also evaluated with a Computer Aided Detection (CAD) system. There is an asymmetry in the right breast posterior depth superior region seen on the mediolateral oblique view only. No other significant masses, calcifications, or other findings are seen in either breast. IMPRESSION: INCOMPLETE: NEEDS ADDITIONAL IMAGING EVALUATION The asymmetry in the right breast may represent a lymph node and is indeterminate. Craniocaudal view with spot compression and spot compression views are recommended. Based on the Tyrer Cuzick model (a risk assessment model) the patient's lifetime risk is 12.8% and her 10 year risk is 3.9%. According to the ACR, ACS, and NCCN guidelines, an annual breast MRI exam along with mammogram is recommended if the patient's lifetime risk is 20% or greater. This exam was interpreted at Station ID: [id number]. NOTE: For mammograms, a report in lay terms will be sent to the patient. Approximately 15% of breast malignancies will not be visualized mammographically. In the management of a palpable breast mass, a negative mammogram must not discourage biopsy of a clinically suspicious lesion. Electronically Signed By: Ann-Marie Vicente M.D. lk/:06/05/2022 13:34:13 letter sent: Additional Imaging Needed ACR BI-RADS Category 0: Incomplete 3340F
== END ==
PROVIDERS: PCP Student in an Organized Health Care Education/Training Program; Referring Provider Student in an Organized Health Care Education/Training Program; Visit Provider Student in an Organized Health Care Education/Training Program
DX: Z12.31 Encounter for screening mammogram for malignant neoplasm of breast (principal)
CPT/HCPCS: 77063; 77067

== ENCOUNTER → 2022-07-02 13:17 | Outpatient (CLI) | payer OTHER, SELFPAY ==
--- NOTE | 2022-07-02 13:19 | DI.US.S_ITS ---
ULTRASOUND OF RIGHT BREAST: 07/02/2022 CLINICAL: Patient returns today to evaluate an asymmetry in the right breast. Comparison is made to exams dated: 07/02/2022 mammogram, 06/05/2022 mammogram - [facility], 10/16/2004 mammogram - [facility], and 11/15/2015 mammogram - [facility]. Color flow ultrasound of the right breast was performed on the areas of interest. Krishnan scale images of the real-time examination were reviewed. There is a normal appearing lymph node in the right breast at 9 o'clock posterior depth. This lymph node is hypoechoic with fatty hilum. This correlates with mammography findings. IMPRESSION: BENIGN There is no sonographic evidence of malignancy. The lymph node in the right breast is benign. Return to annual mammogram screening schedule is recommended. This exam was interpreted at Station ID: [id number]. Electronically Signed By: Ann-Marie herrera/:07/02/2022 14:41:05 letter sent: Normal Exam Ultrasound BI-RADS: 2 Benign
--- NOTE | 2022-07-02 13:19 | DI.MG.S_ITS ---
UNILATERAL RIGHT DIGITAL DIAGNOSTIC MAMMOGRAM 3D/2D WITH ADDITIONAL VIEWS: 07/02/2022 CLINICAL: Additional evaluation requested from prior study. Comparison is made to exams dated: 06/05/2022 mammogram, 11/15/2015 mammogram - [facility], and 10/16/2004 mammogram - [facility]. The right breast is heterogeneously dense, which may obscure small masses (category c / 51-75% glandular tissue). There is a focal asymmetry in the right breast at 10 o'clock posterior depth. This is seen in additional views. No other significant masses or calcifications are seen in the breast. IMPRESSION: INCOMPLETE: NEEDS ADDITIONAL IMAGING EVALUATION The focal asymmetry in the right breast is indeterminate. A targeted ultrasound of the right breast is recommended and will be performed immediately following this exam. Based on the Tyrer Cuzick model (a risk assessment model) the patient's lifetime risk is 12.8% and her 10 year risk is 3.9%. According to the ACR, ACS, and NCCN guidelines, an annual breast MRI exam along with mammogram is recommended if the patient's lifetime risk is 20% or greater. This exam was interpreted at Station ID: [id number]. NOTE: For mammograms, a report in lay terms will be sent to the patient. Approximately 15% of breast malignancies will not be visualized mammographically. In the management of a palpable breast mass, a negative mammogram must not discourage biopsy of a clinically suspicious lesion. Electronically Signed By: Ann-Marie Vicente M.D. lk/:07/02/2022 14:09:18 ACR BI-RADS Category 0: Incomplete 3340F
== END ==
PROVIDERS: PCP Student in an Organized Health Care Education/Training Program; Referring Provider Internal Medicine; Visit Provider Internal Medicine
DX: R92.8 Other abnormal and inconclusive findings on diagnostic imaging of breast (principal)
CPT/HCPCS: 76642; 77065; G0279

== ENCOUNTER → 2023-07-02 10:13 | Outpatient (CLI) | payer OTHER, SELFPAY ==
[2023-07-02 11:51] LABS: Alanine Aminotransferase 23 IU/L (<35); Albumin 4.2 g/dL (3.5-5.0); Albumin Globulin Ratio 1.6 (1.0-2.8); Alkaline Phosphatase 59 U/L (38-126); Aspartate Aminotransferase 24 IU/L (14-36); BUN Creatinine Ratio 29.7 (6-22); Bilirubin Total 0.8 mg/dL (0.2-1.3); Blood Urea Nitrogen 19 mg/dL (7-17); Calcium 9.7 mg/dL (8.4-10.2); Carbon Dioxide 25 mmol/L (22-32); Chloride 104 mmol/L (98-107); Cholesterol 167 mg/dL (140-199); Estimated Glomerular Filt Rate > 60 mL/min (>60); Gamma Glutamyl Transpeptidase 51 U/L (12-43); Globulin 2.7 g/dL (1.7-4.1); Glucose 98 mg/dL (70-100); HDL Cholesterol 47 mg/dL (40-60); HEMOLYSIS < 15 (0-50); LDL Cholesterol Calculated 97 mg/dL (<100); Potassium 4.1 mmol/L (3.4-5.1); Sodium 136 mmol/L (137-145); Total Protein 6.9 g/dL (6.3-8.2); Triglycerides 117 mg/dL (35-150); Uric Acid 3.6 mg/dL (2.5-6.2)
[2023-07-02 15:28] LABS: Creatinine Urine Random 320.7 mg/dL
[2023-07-02 15:31] LABS: Protein (Total) Urine Random < 5 mg/dL (0-12); Protein Creatinine Ratio Urine 0.01 GRAM/24H
[2023-07-03 17:54] LABS: Hep C Virus Ab w/Reflex Quant NEGATIVE s/c (NEGATIVE)
== END ==
PROVIDERS: PCP Nurse Practitioner Family; Referring Provider Family Medicine; Visit Provider Family Medicine
DX: Z11.59 Encounter for screening for other viral diseases (principal); Z13.220 Encounter for screening for lipoid disorders; R74.8 Abnormal levels of other serum enzymes; E79.0 Hyperuricemia without signs of inflammatory arthritis and tophaceous disease; Z00.00 Encounter for general adult medical examination without abnormal findings
CPT/HCPCS: 36415; 80053; 80061; 82570; 82977; 84156; 84550; 86803

== ENCOUNTER 2023-10-09 09:06 | Day surgery (SDC) | payer OTHER, SELFPAY ==
--- NOTE | 2023-10-09 | PATH_ITS ---
[facility] Accession Number: [id number] No. of containers..03 Tissue . 01 Material submitted: . PART A: colon - RANDOM COLON BX PART B: splenic flexure - SPLENIC POLYPS PART C: sigmoid colon - SIGMOID POLYPS . 01 Diagnosis: A. RANDOM COLON, BIOPSY: Colonic mucosa with no diagnostic abnormality. Negative for active, chronic, and microscopic colitis. Negative for dysplasia and malignancy. . B. SPLENIC FLEXURE POLYPS: Colonic mucosa with prominent benign lymphoid aggregate x1. Colonic mucosa with focal mucosal hyperplasia x1. Negative for dysplasia and malignancy. . C. SIGMOID COLON POLYPS: Hyperplastic polyp x1. Inflamed granulation tissue/inflammatory polyp x1. Negative for dysplasia or malignancy. [facility] 10/15/2023 1128 Local . 01 Electronically signed: . Manpreet Hercules MD, PhD, Pathologist NPI- [id number] . 01 Gross description: . Part A: RANDOM COLON BX: Received in formalin are 3 fragment(s) of sevilla, soft tissue measuring 0.1 x 0.1 x 0.1 cm to 0.5 x 0.2 x 0.2 cm submitted entirely in 1 cassette(s) Part B: SPLENIC POLYPS: Received in formalin is 1 fragment(s) of sevilla, soft tissue measuring 0.3 x 0.2 x 0.2 cm submitted entirely in 1 cassette(s) Part C: SIGMOID POLYPS: Received in formalin are 2 fragment(s) of sevilla, soft tissue measuring 0.3 x 0.3 x 0.2 cm to 0.4 x 0.4 x 0.3 cm submitted entirely in 1 cassette(s) /NANI 10/10/20232036 Local . 01 Pathologist provided ICD-10: R19.4, K63.5, K51.40 . 01 CPT . 759424, 755050, 697668 Specimen Comment: A courtesy copy of this report has been sent to [phone] Performed at: 01 [facility] [address] [place] [address] [id number] MD Lico Castellanos MD Phone: [phone]
[2023-10-09 09:39] VITALS: BMI 29.0
[2023-10-09 09:50] VITALS: BP 115/82; PULSE 77; RESP 18; TEMP 36.2; O2SAT 100
--- NOTE | 2023-10-09 09:59 | PM.HP.1 ---
History of Present Illness History of Present Illness Date Patient Seen: 10/09/23 Chief complaint: [facility] Narrative: Cologuard positive, for screening colonoscopy [facility] Medical History (Updated 11/15/22 @ 15:15 by TARUN Kwong) Vaginal spotting Vasomotor symptoms due to menopause Coccyx disorder (2005) Acute exacerbation of chronic low back pain Seasonal allergies Bacterial sinusitis Allergies Chronic back pain Ankle pain Tinnitus (~07/2018) Recurrent sinusitis Irregular menstrual cycle History of urinary incontinence Anxiety Intermittent chest pain (07/2019) Menorrhagia Shoulder pain Chicken pox (1976) Eczema Hypertension (2013) Fractures Surgical History Stress incontinence (~08/26/19) Anesthesia Hx of knee surgery (1990) History of tonsillectomy (1985) Family History Father Cancer Brain tumor Grandfather Heart disease Mother Age: 84 Hypertension Brother No problems noted. Brother No problems noted. Brother No problems noted. Brother No problems noted. Grandmother Brain aneurysm Grandfather No problems noted. Grandmother No problems noted. Sister No problems noted. Social History Smoking Status: Former smoker alcohol intake: current substance use type: does not use Meds Home Medications and Allergies Home Medications Medication Instructions Recorded Confirmed Type gabapentin 300 mg capsule 600 mg PO BEDTIME 05/15/22 11/15/22 History epinephrine 0.3 mg/0.3 mL 0.3 mg (0.3 mL) IM PRN PRN 08/21/22 11/15/22 Rx injection, auto-injector (EpiPen anaphylaxis #1 pkg 2-Peter) irbesartan 300 mg tablet 300 mg PO DAILY #90 tabs 05/29/23 Rx Allergies Allergy/AdvReac Type Severity Reaction Status Date / Time bee venom protein (honey bee) Allergy Severe Anaphylaxis Verified 11/15/22 14:00 Exam Vital Signs (past 8 hours): - 10/09/23 09:50 Temperature 97.2 F L Pulse Rate 77 Respiratory Rate 18 Blood Pressure 115/82 Pulse Oximetry 100 Oxygen Delivery Method Room Air Oxygen Delivery Method Room Air Narrative Exam Narrative: Oropharynx free of lesions Chest clear to auscultation percussion Cardiac exam reveals no S3 or murmur Assessment & Plan Assessment & Plan narrative: Cologuard positivity. Need for follow-up colonoscopy. Patient's 1st colonoscopy. Risks, benefits, alternatives have been explained.
--- NOTE | 2023-10-09 10:01 | PM.OP.COLON ---
Operative Date/Time/Diagnoses Date of procedure: 10/09/23 Pre-op diagnosis: See indication and findings Procedure & Clinicians Study performed: Colonoscopy Indications: Cologuard positive Surgeon: Elisa Conteh Procedure Notes Procedure in detail: After informed consent was obtained patient was placed in left lateral decubitus position. The video colonoscope was introduced the rectum slowly advanced cecum. On slow withdrawal mucosa was carefully examined. Preparation was good. Scope was removed. The patient tolerated procedure well. Blood loss none Complications none Sedation mac Findings 1. Mucosa entirely normal random biopsies taken 2. Splenic flexure 5 mm polyp cold snared and removed completely 3. Sigmoid 6 mm polyp snared removed completely. 4. 3 mm polyp in the sigmoid Jumbo biopsy removed completely and placed in bottle was sigmoid polyp 5. Otherwise negative colonoscopy to cecum We will be in touch regarding biopsies and interval for surveillance
[2023-10-09 11:21] VITALS: BP 109/91; PULSE 76; RESP 15; TEMP 36.9; O2SAT 98
[2023-10-09 11:26] VITALS: BP 110/70; PULSE 72; RESP 16; O2SAT 98
[2023-10-09 11:33] VITALS: BP 108/77; PULSE 69; RESP 15; TEMP 36.9; O2SAT 99
== END 2023-10-09 11:45 | disposition home or self-care (01) ==
PROVIDERS: PCP Nurse Practitioner Family; Referring Provider Internal Medicine Gastroenterology; Visit Provider Internal Medicine Gastroenterology
PROC: 0DJD8ZZ Inspection of Lower Intestinal Tract, Via Natural or Artificial Opening Endoscopic (ICD-10-PCS; CPT 45378; principal; 2023-10-09 10:00)
DX: Z12.11 Encounter for screening for malignant neoplasm of colon (principal); R19.5 Other fecal abnormalities; K51.40 Inflammatory polyps of colon without complications; K63.5 Polyp of colon
CPT/HCPCS: 45385; 45380; J2704

== ENCOUNTER → 2024-08-21 14:21 | Outpatient (CLI) | payer BC, SELFPAY ==
--- NOTE | 2024-08-21 14:24 | DI.MG.S_ITS ---
BILATERAL DIGITAL SCREENING MAMMOGRAM 3D/2D WITH CAD: 08/21/2024 CLINICAL: Routine screening. Comparison is made to exams dated: 06/05/2022 mammogram, 11/15/2015 mammogram - [facility], 10/16/2004 mammogram - [facility], and 07/02/2022 mammogram - [facility]. The breasts are heterogeneously dense, which may obscure small masses (category c / 51-75% glandular tissue). Current study was also evaluated with a Computer Aided Detection (CAD) system. No significant masses, calcifications, or other findings are seen in either breast. There has been no significant interval change. IMPRESSION: NEGATIVE There is no mammographic evidence of malignancy. A 1 year screening mammogram is recommended. Based on the Tyrer Cuzick model (a risk assessment model) the patient's lifetime risk is 12.5% and her 10 year risk is 4.4%. According to the ACR, ACS, and NCCN guidelines, an annual breast MRI exam along with mammogram is recommended if the patient's lifetime risk is 20% or greater. This exam was interpreted at Station ID: [id number]. NOTE: For mammograms, a report in lay terms will be sent to the patient. Approximately 15% of breast malignancies will not be visualized mammographically. In the management of a palpable breast mass, a negative mammogram must not discourage biopsy of a clinically suspicious lesion. Electronically Signed By: Mark martino/divina:08/21/2024 15:54:02 letter sent: Normal Exam ACR BI-RADS Category 1: Negative
== END ==
LOC: MAMMO 14:23
PROVIDERS: Referring Provider Internal Medicine; Visit Provider Internal Medicine
DX: Z12.31 Encounter for screening mammogram for malignant neoplasm of breast (principal); R92.333 Mammographic heterogeneous density, bilateral breasts
CPT/HCPCS: 77063; 77067

== ENCOUNTER → 2024-10-06 14:10 | Outpatient (CLI) | payer BC, SELFPAY ==
[2024-10-06 15:42] LABS: Add Manual Diff / Slide Review NO; Basophils Absolute Auto 0 /uL (0-100); Basophils Percent Auto 0.5 % (0-2); Eosinophils Absolute Auto 100 /uL (0-450); Hematocrit 40.4 % (36-46); Hemoglobin 13.9 g/dL (12.0-16.0); Lymphocytes Absolute Auto 3100 /uL (1100-4500); Lymphocytes Percent Auto 50.8 % (25-40); Mean Corpuscular HGB Conc 34.5 % (30-36); Mean Corpuscular Hemoglobin 30.9 PG (26-34); Mean Corpuscular Volume 89.8 fL (80-100); Monocytes Absolute Auto 400 /uL (0-900); Monocytes Percent Auto 6.4 % (3-14); Neutrophils Absolute Auto 2500 /uL (1500-7000); Neutrophils Percent Auto 40.3 % (50-75); Platelet Count 312 X10^3/uL (150-400); Red Cell Distribution Width 12.6 % (11.6-14.8); White Blood Cell Count 6.1 X10^3/uL (4.5-11.0)
[2024-10-06 16:04] LABS: Alanine Aminotransferase 24 IU/L (<35); Albumin 4.6 g/dL (3.5-5.0); Alkaline Phosphatase 59 U/L (38-126); Aspartate Aminotransferase 30 IU/L (14-36); BUN Creatinine Ratio 22.1 (6-22); Bilirubin Total 0.5 mg/dL (0.2-1.3); Blood Urea Nitrogen 17 mg/dL (7-17); Calcium 9.8 mg/dL (8.4-10.2); Carbon Dioxide 27 mmol/L (22-32); Chloride 103 mmol/L (98-107); Cholesterol 197 mg/dL (140-199); Estimated Glomerular Filt Rate > 60 mL/min (>60); Globulin 2.3 g/dL (1.7-4.1); Glucose 117 mg/dL (70-100); HDL Cholesterol 76 mg/dL (40-60); HEMOLYSIS < 15 (0-50); LDL Cholesterol Calculated 84 mg/dL (<100); Potassium 4.1 mmol/L (3.4-5.1); Sodium 138 mmol/L (137-145); Total Protein 6.9 g/dL (6.3-8.2); Triglycerides 184 mg/dL (35-150)
[2024-10-06 16:18] LABS: Follicle Stimulating Hormone 71.7 mIU/mL; Free T3, Triiodothyronine Free 3.54 pg/mL (2.77-5.27); Free T4, Direct Thyroxine 0.98 ng/dL (0.78-2.19); Progesterone, Total 1.24 ng/mL
[2024-10-06 16:19] LABS: Vitamin D 25 Hydroxy (D3) > 126 ng/mL (30.0-100.0)
[2024-10-06 16:31] LABS: Thyroid Stimulating Hormone 1.02 uIU/mL (0.47-4.68)
[2024-10-06 16:34] LABS: Estradiol, Total 23.6 pg/mL
[2024-10-06 16:51] LABS: Vitamin B12 > 1000 pg/mL (239-931)
== END ==
LOC: LAB 14:15
PROVIDERS: PCP Registered Nurse; Referring Provider Specialist; Visit Provider Specialist
DX: Z51.81 Encounter for therapeutic drug level monitoring (principal); N95.9 Unspecified menopausal and perimenopausal disorder; R53.83 Other fatigue; E63.9 Nutritional deficiency, unspecified; G62.9 Polyneuropathy, unspecified; Z79.84 Long term (current) use of oral hypoglycemic drugs
CPT/HCPCS: 36415; 80053; 80061; 82306; 82607; 82670; 83001; 84144; 84402; 84403; 84439; 84443; 84481; 84482; 85025